=== PATIENT | female | born 1985 | race Two or more races ===

== ENCOUNTER 2024-04-16 22:12 | Emergency (ER) | payer OTHER ==
[~2024-04-16] VITALS: Ht 167.6 cm; Wt 85.0 kg
[2024-04-16] MEDS ORDERED: MECL12.586 PO (23:22)
[2024-04-16] MEDS ORDERED: AUG875T PO (23:22)
[2024-04-17] MEDS: AMOXICILLIN/CLAVUL 875 MG TAB PO ONE (01:02)
[2024-04-17] MEDS: MECLIZINE HCL 25 MG TAB PO ONE (01:02)
[2024-04-17 01:08] VITALS: BP 154/90; PULSE 84; RESP 18; TEMP 98.9; O2SAT 98
== END 2024-04-17 01:08 | disposition home or self-care (01) ==
LOC: EEVIPCON 22:12 → ER 22:12
DX: H72.92 Unspecified perforation of tympanic membrane, left ear (principal); H81.393 Other peripheral vertigo, bilateral; R11.2 Nausea with vomiting, unspecified
CPT/HCPCS: 99283; J8597